=== PATIENT | male | born 1945 | race Caucasian/White ===

== ENCOUNTER 2021-03-21 07:25 | Emergency (ER) | payer OTHER ==
[~2021-03-21] VITALS: Ht 185.4 cm; Wt 90.7 kg
== END 2021-03-21 10:34 ==
LOC: ED 07:25
DX: S09.90XA Unspecified injury of head, initial encounter (principal); S49.91XA Unspecified injury of right shoulder and upper arm, initial encounter; S49.92XA Unspecified injury of left shoulder and upper arm, initial encounter; W17.89XA Other fall from one level to another, initial encounter; Y93.89 Activity, other specified; Y92.128 Other place in nursing home as the place of occurrence of the external cause; Y99.8 Other external cause status

== ENCOUNTER 2021-03-31 20:37 | Emergency (ER) | payer OTHER ==
[~2021-03-31] VITALS: Ht 170.1 cm; Wt 72.6 kg
== END 2021-04-01 02:43 | disposition home or self-care (01) ==
LOC: ED 20:37
DX: S16.1XXA Strain of muscle, fascia and tendon at neck level, initial encounter (principal); S46.912A Strain of unspecified muscle, fascia and tendon at shoulder and upper arm level, left arm, initial encounter; S53.402A Unspecified sprain of left elbow, initial encounter; S09.90XA Unspecified injury of head, initial encounter; Z88.8 Allergy status to other drugs, medicaments and biological substances; Z91.040 Latex allergy status; W19.XXXA Unspecified fall, initial encounter; Y93.89 Activity, other specified; Y92.89 Other specified places as the place of occurrence of the external cause; Y99.8 Other external cause status